=== PATIENT | female | born 1935 | race Caucasian/White ===

== ENCOUNTER → 2016-11-22 | Outpatient (CLI) | payer OTHER ==
[~2016-11-22] MED LIST: ANTIVERT25 MG PO; CALCIUM 600 +1 EAC6 PO; CELEXA20 MG PO; COLACE100 MG PO; DICYCLOMINE HCL20 MG PO; IBRANCE125 MG PO; LO-DOSE ASPIRIN81 M1 PO; NORVASC10 MG PO; PRINIVIL20 MG PO; TENORMIN25 MG PO; THERAGRAN1 TABLET PO; TRAMADOL HCL50 MG PO; ULTRAM50 MG PO
== END | disposition home or self-care (01) ==
LOC: RAD 13:39 → EDSTATUS 14:00
PROC: 0W9B3ZZ Drainage of Left Pleural Cavity, Percutaneous Approach (ICD-10-PCS; principal; 2016-11-22)
DX: J90 Pleural effusion, not elsewhere classified (principal)
CPT/HCPCS: 88108; 88305; 88341 TC; 88342 TC